=== PATIENT | male | born 2000 | race Caucasian/White ===

== ENCOUNTER 2022-10-01 09:57 | Emergency (ER) | payer OTHER ==
[~2022-10-01] VITALS: Ht 182.9 cm; Wt 81.0 kg
[2022-10-01] MEDS ORDERED: KETOROLAC 30 MG/ML 1ML VIAL IM ONE (13:05)
[2022-10-01 13:17] VITALS: BP 129/66; TEMP 98.5; O2SAT 97
== END 2022-10-01 13:19 | disposition home or self-care (01) ==
LOC: M ED 09:57
DX: R07.89 Other chest pain (principal)
CPT/HCPCS: 71046; 93005; 96372; 99284; J1885